=== PATIENT | female | born 1940 | race Caucasian/White ===

== ENCOUNTER 2023-04-16 08:20 | Day surgery (SDC) | payer OTHER ==
--- NOTE | 2023-04-11 10:40 | RAD REPORT ---
EXAM DESCRIPTION: RAD - Chest Pa And Lat (2 Views) - 04/11/2023 10:30 am CLINICAL HISTORY: pre op Chest pain. COMPARISON: CHEST SINGLE VIEW dated 08/22/2009; CHEST SINGLE VIEW dated 08/21/2009 TECHNIQUE: PA and lateral views of the chest were obtained. FINDINGS: The lungs are hyperexpanded compatible with COPD. The heart is upper limit of normal in si ze. No fracture or aggressive bony process. IMPRESSION: COPD without acute process identified. The USPSTF recommends annual screening for lung cancer with low-dose CT (LDCT) in adults aged 50 to 80 years who have a 20 pack-year smoking history and currently smoke or have quit within the past 15 years.
[2023-04-11 10:42] LABS: Protime INR 0.93
[2023-04-16] MEDS ORDERED: NA CHLORIDE 0.9% 500 ML ONE (08:42)
[2023-04-16] MEDS ORDERED: LIDOCAINE 1% 20 ML MDV ONE (09:18)
[2023-04-16] MEDS ORDERED: HEPA 1000U/500MLS 2,000 UNIT/1,000 ML BAG IV ONE (09:18)
[2023-04-16] MEDS ORDERED: FENTANYL CITR 100 MCG/2 ML ONE (09:19)
[2023-04-16] MEDS ORDERED: HEPARIN 5000 UNIT/ML 1 ML VIAL ONE (09:19)
[2023-04-16] MEDS ORDERED: MIDAZOLAM HCL 2 MG/2 ML INJ ONE (09:19)
[2023-04-16] MEDS ORDERED: ASPIRIN 325 MG TAB ONE (09:20)
[2023-04-16] MEDS ORDERED: ATROPINE SULF 1 MG/10 ML SYR IV ONE (09:20)
[2023-04-16] MEDS ORDERED: CLOPIDOGREL 75 MG TABLET ONE (09:20)
[2023-04-16] MEDS ORDERED: VERAPAMIL HCL 10 MG/4 ML VIAL IV ONE (09:20)
[2023-04-16] MEDS ORDERED: HEPARIN 10,000 UNIT/10 ML VIAL IV ONE (09:20)
[2023-04-16] MEDS ORDERED: TICAGRELOR 90 MG TABLET PO ONE (09:20)
[2023-04-16 09:24] VITALS: TEMP 97.2
--- NOTE | 2023-04-16 12:18 | OP ---
Date of Procedure: 04/16/2023 Surgeon: EL HALE Procedures Performed: 1.Selective coronary angiogram. 2.Left heart catheterization. 3.Right heart catheterization. Indication: 1.Aortic valve stenosis evaluation. 2.Chest pain suggestive of unstable angina. Access: 1.Right radial artery 6-Hungarian closed with TR band. 2.Right IJ 7-Hungarian closed with manual pressure. Complications: None. Bleeding: Less than 20 mL. Anesthesia: Total sedation time was 35 minutes. Description Of Procedure: After risks, benefits, alternatives were explained, patient agreed to proc edure and signed the informal consent. Patient was brought into the cardiac catheterization laborato , prepped and draped in usual sterile fashion. Then, I accessed right radial artery using Piehole c micropuncture kit and placed a 6-Hungarian Slender sheath and took 5-Hungarian [place] 4.0 catheter into ao rtic root and engaged left main, took standard views and then in the RCA, took standard views and the catheter was pushed over the wire into the LV, measured the LVEDP. Pullback recorded a gradient and valve area was 0.55 sq cm. Then I removed the catheter and the sheath, placed TR band with good hem ostasis. Then, I accessed right IJ using micropuncture kit, ultrasound guidance, and placed a 7-Fren ch [place] sheath and took a 7-Hungarian balloon-tipped [place] catheter into the right atrium, right vent ricle, pulmonary artery and wedge, obtained waveform and pressures and then obtained thermodilutional cardiac output. Then I removed the catheter and removed the sheath and manual pressure was used for closure with good hemostasis. Findings: 1.Left coronary angiogram: a.Left main is normal. b.LAD; proximal 50%, mid 50% before the diagonal branch takeoff and then with luminal irregularities . c.Left circumflex; very large and dominant. Proximal 40%, mid 50% after the takeoff of the OM and t hen mid to distal 30% focal stenosis and the OM branch has another branch comes off it. It is very s mall, has 80% stenosis. d.RCA; very small, nondominant. No significant disease. 2.Right heart cath numbers: RA pressure was 4/1, mean of 1. The RV pressure was 22/3, mean of 5. PA pressure was 17/5, mean of 9. Pulmonary wedge pressure was 3. LVEDP was 13 mmHg and mean gradien t across aortic valve was 17 mmHg and valve area is 0.55 sq cm. Conclusions: 1.Moderate coronary artery disease. 2.Severe aortic valve stenosis by valve area. Recommendations: Evaluate for aortic valve replacement transcatheter approach. SR/MODL Voice ID: [id number] Report ID: [id number]
[2023-04-16 14:36] VITALS: BP 124/53; O2SAT 99
== END 2023-04-16 13:45 | disposition home or self-care (01) ==
LOC: CCL 08:20
PROVIDERS: ATTEND Internal Medicine
DX: I35.0 Nonrheumatic aortic (valve) stenosis (principal); I25.10 Atherosclerotic heart disease of native coronary artery without angina pectoris; I65.23 Occlusion and stenosis of bilateral carotid arteries; I73.9 Peripheral vascular disease, unspecified; I10 Essential (primary) hypertension; E78.5 Hyperlipidemia, unspecified; Z87.891 Personal history of nicotine dependence; Z79.82 Long term (current) use of aspirin; Z79.899 Other long term (current) drug therapy; Z88.8 Allergy status to other drugs, medicaments and biological substances; Z82.49 Family history of ischemic heart disease and other diseases of the circulatory system
CPT/HCPCS: 93005; 36415; 85610; 85730; 71046; 93460; 76937; C1893; Q9966; J1644; J2001; J2250; J3010; J7040; J0461